=== PATIENT | female | born 1995 | race Two or more races ===

== ENCOUNTER 2018-02-12 05:55 | Inpatient (IN) | payer MEDICAID ==
--- NOTE | 2018-02-12 07:56 | PCM.LDHP ---
L&D History of Present Illness - General Date of Service: 02/12/18 Admit Problem/Dx: Admission Diagnosis/Problem Admission Diagnosis/Problem Source of Information: Patient History Limitations: Reports: No Limitations - History of Present Illness Introduction:: 22 year old at 39w4d here for induction for TOLAC. PNC with myself without complications other than prior for NRFHT. Had been scheduled for rcs/btl prior to transfer of care but decided wanted MANDO as she cannot have a btl. - Related Data Allergies/Adverse Reactions: Allergies Allergy/AdvReac Type Severity Reaction Status Date / Time No Known Allergies Allergy Verified 02/07/18 07:39 H&P Review of Systems - Review of Systems: Review Of Systems: See Below General: Reports: No Symptoms HEENT: Reports: No Symptoms Pulmonary: Reports: No Symptoms Cardiovascular: Reports: No Symptoms Gastrointestinal: Reports: No Symptoms Genitourinary: Reports: No Symptoms Musculoskeletal: Reports: No Symptoms Skin: Reports: No Symptoms Psychiatric: Reports: No Symptoms Neurological: Reports: No Symptoms Hematologic/Lymphatic: Reports: No Symptoms Immunologic: Reports: No Symptoms L&D Exam - Exam Exam: See Below - OB Specific Contraction Intensity: Mild to Moderate Movement: Active Heart Tones: Present Heart Rate (FHR) Variability: Moderate (6-25 bmp) Presentation: Vertex - Wade Score Wade Score Cervix Position: Midposition Wade Score Consistency: Soft Wade Score Effacement: 51-70% Wade Score Dilation: 1-2 cm Wade Score Infant's Station: -2 Wade Score Total: 7 - Exam General: Alert, Oriented HEENT: PERRLA, Conjunctiva Clear, EACs Clear, EOMI, Hearing Intact, Mucosa Moist & [place], Nares Patent, Normal Nasal Septum, Posterior Pharynx Clear, TMs Clear Neck: Supple, Trachea Midline Lungs: Clear to Auscultation, Normal Respiratory Effort Cardiovascular: Regular Rate, Regular Rhythm GI/Abdominal Exam: Normal Bowel Sounds, Soft, Non-Tender, No Organomegaly, No Distention, No Abnormal Bruit, No Mass, Pelvis Stable Rectal Exam: Normal Exam, Normal Rectal Tone Genitourinary: Normal external exam, Normal bimanual exam, Normal speculum exam Back Exam: Normal Inspection, Full Range of Motion Extremities: Normal Inspection, Normal Range of Motion, Non-Tender, No Pedal Edema, Normal Capillary Refill Skin: Warm, Dry, Intact Neurological: Cranial Nerves Intact, Reflexes Equal Bilateral Psychiatric: Alert, Normal Affect, Normal Mood Problem List Initiated/Reviewed/Updated: Yes Orders Last 24hrs: TOLAC - induction. Understands RBA. AROM clear fluid. Pitocin. Anticipate
[2018-02-12] MEDS ORDERED: Sodium Chloride 0.9% 10 ML Syringe FLUSH PRN (08:24)
[2018-02-12] MEDS ORDERED: Ondansetron 4 MG/2 ML SDV IVPUSH PRN ×2 (08:24→09:39)
[2018-02-12] MEDS ORDERED: Nalbuphine 20 MG/ML 1 ML Syringe IVPUSH PRN (08:24)
[2018-02-12] MEDS ORDERED: Oxytocin/Lactated Ringers 10 UNIT/1,000 ML BAG IV SCH ×2 (08:30→08:45)
[2018-02-12] MEDS ORDERED: Ampicillin 2 GM in Sodium Chloride 0.9% 100 ML IV ONE (08:30)
[2018-02-12] MEDS: Lactated Ringers 1,000 ML IV SCH ×4 (09:00→18:22)
[2018-02-12] MEDS ORDERED: fentaNYL 100 MCG/2 ML SDV EPIDUR PRN (09:39)
[2018-02-12] MEDS ORDERED: ePHEDrine 50 MG/ML SDV IVPUSH PRN (09:39)
[2018-02-12] MEDS ORDERED: diphenhydrAMINE 50 MG/ML SDV IVPUSH PRN (09:39)
--- NOTE | 2018-02-12 09:51 | PCM.PREANE ---
Preanesthetic Assessment - Procedure Proposed Procedure: NIKO - Anesthesia/Transfusion/Family Hx Anesthesia History: Prior Anesthesia Without Reaction Family History of Anesthesia Reaction: No Transfusion History: No Prior Transfusion(s) Intubation History: Unknown - Review of Systems General: No Symptoms Pulmonary: No Symptoms Cardiovascular: No Symptoms Gastrointestinal: No Symptoms Neurological: No Symptoms Other: Reports: None - Physical Assessment NPO Status Date: 02/12/18 NPO Status Time: 08:00 Pulse: 82 O2 Sat by Pulse Oximetry: 98 Respiratory Rate: 18 Blood Pressure: 106/45 Temperature: 36.5 C Height: 1.63 m Weight: 96.615 kg ASA Class: 2 Mental Status: Alert & Oriented x3 Airway Class: Mallampati = 1 Dentition: Reports: Normal Dentition Thyro-Mental Finger Breadths: 3 Mouth Opening Finger Breadths: 3 ROM/Head Extension: Full Lungs: Clear to Auscultation, Normal Respiratory Effort Cardiovascular: Regular Rate, Regular Rhythm - Lab Values: Laboratory Last Values WBC 7.05 K/mm3 (3.98-10.04) 02/12/18 08:50 RBC 4.01 M/mm3 (3.98-5.22) 02/12/18 08:50 Hgb 9.1 gm/L (11.2-15.7) L 02/12/18 08:50 Hct 30.0 % (34.1-44.9) L 02/12/18 08:50 MCV 74.8 fl (79.4-94.8) L 02/12/18 08:50 MCH 22.7 pg (25.6-32.2) L 02/12/18 08:50 MCHC 30.3 g/dl (32.2-35.5) L 02/12/18 08:50 RDW Std Deviation 42.6 fL (36.4-46.3) 02/12/18 08:50 Plt Count 181 K/mm3 (182-369) L 02/12/18 08:50 MPV 10.9 fl (9.4-12.3) 02/12/18 08:50 Neut % (Auto) 75.9 % (34.0-71.1) H 02/12/18 08:50 Lymph % (Auto) 17.3 % (19.3-51.7) L 02/12/18 08:50 [place] % (Auto) 5.4 % (4.7-12.5) 02/12/18 08:50 Eos % (Auto) 0.7 (0.7-5.8) 02/12/18 08:50 Baso % (Auto) 0.1 % (0.1-1.2) 02/12/18 08:50 Neut # (Auto) 5.35 K/mm3 (1.56-6.13) 02/12/18 08:50 Lymph # (Auto) 1.22 K/mm3 (1.18-3.74) 02/12/18 08:50 [place] # (Auto) 0.38 K/mm3 (0.24-0.36) H 02/12/18 08:50 Eos # (Auto) 0.05 K/mm3 (0.04-0.36) 02/12/18 08:50 Baso # (Auto) 0.01 K/mm3 (0.01-0.08) 02/12/18 08:50 Manual Slide Review Abnormal smear 02/12/18 08:50 - Allergies Allergies/Adverse Reactions: Allergies Allergy/AdvReac Type Severity Reaction Status Date / Time No Known Allergies Allergy Verified 02/07/18 07:39 - Blood Blood Available: No Product(s) Available: None - Anesthesia Plan Pre-Op Medication Ordered: None - Acknowledgements Anesthesia Type Planned: Epidural Pt an Appropriate Candidate for the Planned Anesthesia: Yes Alternatives and Risks of Anesthesia Discussed w Pt/Guardian: Yes Pt/Guardian Understands and Agrees with Anesthesia Plan: Yes PreAnesthesia Questionnaire RN PLASTIC SURGERY History: Reports: Hematologic History: Reports: Anemia - SUBSTANCE USE Smoking Status *Q: Never Smoker Second Hand Smoke Exposure: No Recreational Drug Use History: No - HOME MEDS Home Medications: Home Meds Acetaminophen [Tylenol] 2 mg PO Q6HR PRN 02/12/18 [History] - CURRENT (IN HOUSE) MEDS Current Meds: Current Medications Diphenhydramine HCl (Benadryl) 25 mg IVPUSH Q6H PRN PRN Reason: Pruritis Ephedrine Sulfate (Ephedrine Sulfate) 5 mg IVPUSH ASDIRECTED PRN PRN Reason: Hypotension Fentanyl (Sublimaze) 100 mcg EPIDUR Q3H PRN PRN Reason: Pain Fentanyl/Bupivacaine HCl (Fentanyl/Bupivacaine/Ns 2 Mcg-0.125% 100 Ml) 100 ml EPIDUR ASDIRECTED CARIN Ampicillin Sodium 1 gm/ Sodium (Chloride) 100 mls @ 200 mls/hr IV Q4H CARIN Lactated Ringer's (Ringers, Lactated) 1,000 mls @ 100 mls/hr IV ASDIRECTED CARIN Last Admin: 02/12/18 09:00 Dose: 100 mls/hr Oxytocin/Lactated Ringer's (Pitocin In Lr 10 Units/1,000 Ml) 10 unit in 1,000 mls @ 500 mls/hr IV .CONTINUOUS CARIN Oxytocin/Lactated Ringer's (Pitocin In Lr 10 Units/1,000 Ml) 10 unit in 1,000 mls @ 12 mls/hr IV TITRATE CARIN; Protocol Lidocaine HCl (Xylocaine 1%) 50 ml INJECT ONETIME ONE Stop: 02/12/18 12:01 Nalbuphine HCl (Nubain) 10 mg IVPUSH Q2H PRN PRN Reason: pain Ondansetron HCl (Zofran) 4 mg IVPUSH Q4H PRN PRN Reason: Nausea/Vomiting Ondansetron HCl (Zofran) 4 mg IVPUSH ONETIME PRN PRN Reason: Nausea/Vomiting Sodium Chloride (Saline Flush) 10 ml FLUSH ASDIRECTED PRN PRN Reason: Keep Vein Open Discontinued Medications Ampicillin Sodium 2 gm/ Sodium (Chloride) 100 mls @ 200 mls/hr IV ONETIME ONE Stop: 02/12/18 08:59 Last Admin: 02/12/18 09:13 Dose: 200 mls/hr
[2018-02-12] MEDS ORDERED: Lidocaine 1% 50 ML MDV INJECT ONE (12:00)
[2018-02-12] MEDS: Ampicillin 1 GM in Sodium Chloride 0.9% 100 ML IV SCH ×3 (13:03→21:14)
[2018-02-12] MEDS: Bupivacaine/fentaNYL/NS 100 ML Bag EPIDUR SCH ×2 (14:12→20:44)
[2018-02-12] MEDS ORDERED: Bupivacaine 0.25% 10 ML SDV ONE (22:00)
--- NOTE | 2018-02-13 00:09 | PCM.PNLD ---
Labor Progress Note - VS & Meds Vital Signs: Last Vital Signs Temp 36.5 C 02/12/18 09:51 Pulse 82 02/12/18 09:51 Resp 18 02/12/18 09:51 BP 106/45 L 02/12/18 09:51 Pulse Ox 98 02/12/18 09:51 Active Medications: Current Medications Diphenhydramine HCl (Benadryl) 25 mg IVPUSH Q6H PRN PRN Reason: Pruritis Ephedrine Sulfate (Ephedrine Sulfate) 5 mg IVPUSH ASDIRECTED PRN PRN Reason: Hypotension Fentanyl (Sublimaze) 100 mcg EPIDUR Q3H PRN PRN Reason: Pain Last Admin: 02/12/18 14:12 Dose: 100 mcg Fentanyl/Bupivacaine HCl (Fentanyl/Bupivacaine/Ns 2 Mcg-0.125% 100 Ml) 100 ml EPIDUR ASDIRECTED CARIN Last Admin: 02/12/18 20:44 Dose: 100 ml Ampicillin Sodium 1 gm/ Sodium (Chloride) 100 mls @ 200 mls/hr IV Q4H CARIN Last Admin: 02/12/18 21:14 Dose: 200 mls/hr Lactated Ringer's (Ringers, Lactated) 1,000 mls @ 100 mls/hr IV ASDIRECTED CARIN Last Admin: 02/12/18 18:22 Dose: 100 mls/hr Oxytocin/Lactated Ringer's (Pitocin In Lr 10 Units/1,000 Ml) 10 unit in 1,000 mls @ 500 mls/hr IV .CONTINUOUS CARIN Oxytocin/Lactated Ringer's (Pitocin In Lr 10 Units/1,000 Ml) 10 unit in 1,000 mls @ 12 mls/hr IV TITRATE CARIN; Protocol Last Titration: 02/12/18 19:30 Dose: 8 munits/min, 48 mls/hr Nalbuphine HCl (Nubain) 10 mg IVPUSH Q2H PRN PRN Reason: pain Ondansetron HCl (Zofran) 4 mg IVPUSH Q4H PRN PRN Reason: Nausea/Vomiting Ondansetron HCl (Zofran) 4 mg IVPUSH ONETIME PRN PRN Reason: Nausea/Vomiting Sodium Chloride (Saline Flush) 10 ml FLUSH ASDIRECTED PRN PRN Reason: Keep Vein Open Discontinued Medications Ampicillin Sodium 2 gm/ Sodium (Chloride) 100 mls @ 200 mls/hr IV ONETIME ONE Stop: 02/12/18 08:59 Last Admin: 02/12/18 09:13 Dose: 200 mls/hr Lidocaine HCl (Xylocaine 1%) 50 ml INJECT ONETIME ONE Stop: 02/12/18 12:01 - Uterine Contractions Contraction Intensity: Mild to Moderate - Monitoring Heart Rate (FHR) Variability: Moderate (6-25 bmp) Strip Review: Category I - Vaginal Exam Dilation (cm): 3 Effacement (Percent): 60 Station: -2 Cervical Position: Midposition - Labor Progress (Free Text) Labor Progress: Progressing well. AROM clear fluid (no prior leaking with attempted AROM)
--- NOTE | 2018-02-13 00:10 | PCM.PNLD ---
Labor Progress Note - VS & Meds Vital Signs: Last Vital Signs Temp 36.5 C 02/12/18 09:51 Pulse 82 02/12/18 09:51 Resp 18 02/12/18 09:51 BP 106/45 L 02/12/18 09:51 Pulse Ox 98 02/12/18 09:51 Active Medications: Current Medications Diphenhydramine HCl (Benadryl) 25 mg IVPUSH Q6H PRN PRN Reason: Pruritis Ephedrine Sulfate (Ephedrine Sulfate) 5 mg IVPUSH ASDIRECTED PRN PRN Reason: Hypotension Fentanyl (Sublimaze) 100 mcg EPIDUR Q3H PRN PRN Reason: Pain Last Admin: 02/12/18 14:12 Dose: 100 mcg Fentanyl/Bupivacaine HCl (Fentanyl/Bupivacaine/Ns 2 Mcg-0.125% 100 Ml) 100 ml EPIDUR ASDIRECTED CARIN Last Admin: 02/12/18 20:44 Dose: 100 ml Ampicillin Sodium 1 gm/ Sodium (Chloride) 100 mls @ 200 mls/hr IV Q4H CARIN Last Admin: 02/12/18 21:14 Dose: 200 mls/hr Lactated Ringer's (Ringers, Lactated) 1,000 mls @ 100 mls/hr IV ASDIRECTED CARIN Last Admin: 02/12/18 18:22 Dose: 100 mls/hr Oxytocin/Lactated Ringer's (Pitocin In Lr 10 Units/1,000 Ml) 10 unit in 1,000 mls @ 500 mls/hr IV .CONTINUOUS CARIN Oxytocin/Lactated Ringer's (Pitocin In Lr 10 Units/1,000 Ml) 10 unit in 1,000 mls @ 12 mls/hr IV TITRATE CARIN; Protocol Last Titration: 02/12/18 19:30 Dose: 8 munits/min, 48 mls/hr Nalbuphine HCl (Nubain) 10 mg IVPUSH Q2H PRN PRN Reason: pain Ondansetron HCl (Zofran) 4 mg IVPUSH Q4H PRN PRN Reason: Nausea/Vomiting Ondansetron HCl (Zofran) 4 mg IVPUSH ONETIME PRN PRN Reason: Nausea/Vomiting Sodium Chloride (Saline Flush) 10 ml FLUSH ASDIRECTED PRN PRN Reason: Keep Vein Open Discontinued Medications Ampicillin Sodium 2 gm/ Sodium (Chloride) 100 mls @ 200 mls/hr IV ONETIME ONE Stop: 02/12/18 08:59 Last Admin: 02/12/18 09:13 Dose: 200 mls/hr Lidocaine HCl (Xylocaine 1%) 50 ml INJECT ONETIME ONE Stop: 02/12/18 12:01 - Uterine Contractions Contraction Intensity: Mild to Moderate Uterine Resting Tone: Soft - Monitoring Heart Rate (FHR) Variability: Moderate (6-25 bmp) Strip Review: Category I - Vaginal Exam Dilation (cm): 6 Effacement (Percent): 90 Station: -2 Cervical Position: Midposition - Labor Progress (Free Text) Labor Progress: Progressing well. Continue low dose pitocin Anticipate
--- NOTE | 2018-02-13 00:14 | PCM.DEL ---
L & D Note - General Info Date of Service: 02/13/18 - Delivery Note Labor: Augmented by ARM, Induced by Oxytocin Delivery Outcome: Livebirth Infant Delivery Mode: Spontaneous Presentation: Left Occiput Anterior (FILIBERTO) Nuchal Cord: None Anesthesia Type: Epidural Episiotomy Type: None Laceration: 1st Degree Suture type: Vicryl Suture size: 3-0 Placenta: Intact, Spontaneous Cord: 3 Vessels Estimated Blood Loss: 600 Resuscitation Needed: No [place]: Bulb Syringe Delivery Comments (Free Text/Narrative):: . 3340g No complications at delivery. Induction Criteria - Wade Score Wade Score Dilation: 1-2 cm Wade Score Effacement: 40-50% Wade Score 's Station: -2 Wade Score Consistency: Medium Wade Score Cervix Position: Midposition Wade Score Total: 5 Wade Score Presenting Part: Reports: Cephalic - Induction Gestational Age >/= 39 wks: Yes Estimated Pelvis: Reports: Adequate Reassuring Monitoring Strip: Yes Absence of Tachy Systole: Yes - Augmentation Estimated Pelvis: Reports: Adequate Weight Estimated:: Reports: AGA Estimated Weight if LGA: 4000 kg Reassuring Monitoring Strip: Yes Absence of Tachy Systole: Yes - General Info Date of Service: 02/13/18 Functional Status: Reports: Pain Controlled - Review of Systems General: Reports: No Symptoms HEENT: Reports: No Symptoms Pulmonary: Reports: No Symptoms Cardiovascular: Reports: No Symptoms Gastrointestinal: Reports: No Symptoms Genitourinary: Reports: No Symptoms Musculoskeletal: Reports: No Symptoms Skin: Reports: No Symptoms Neurological: Reports: No Symptoms Psychiatric: Reports: No Symptoms - Patient Data Vitals - Most Recent: Last Vital Signs Temp 36.5 C 02/12/18 09:51 Pulse 82 02/12/18 09:51 Resp 18 02/12/18 09:51 BP 106/45 L 02/12/18 09:51 Pulse Ox 98 02/12/18 09:51 Weight - Most Recent: 96.615 kg I&O - Last 24 Hours: Intake & Output 02/12/18 02/12/18 02/13/18 14:59 22:59 06:59 Intake Total 480 Balance 480 Lab Results Last 24 Hours: Laboratory Results - last 24 hr 02/12/18 02/12/18 02/12/18 Range/Units 08:50 08:50 08:50 WBC 7.05 (3.98-10.04) K/mm3 RBC 4.01 (3.98-5.22) M/mm3 Hgb 9.1 L (11.2-15.7) gm/L Hct 30.0 L (34.1-44.9) % MCV 74.8 L (79.4-94.8) fl MCH 22.7 L (25.6-32.2) pg MCHC 30.3 L (32.2-35.5) g/dl RDW Std Deviation 42.6 (36.4-46.3) fL Plt Count 181 L (182-369) K/mm3 MPV 10.9 (9.4-12.3) fl Neut % (Auto) 75.9 H (34.0-71.1) % Lymph % (Auto) 17.3 L (19.3-51.7) % [place] % (Auto) 5.4 (4.7-12.5) % Eos % (Auto) 0.7 (0.7-5.8) Baso % (Auto) 0.1 (0.1-1.2) % Neut # (Auto) 5.35 (1.56-6.13) K/mm3 Lymph # (Auto) 1.22 (1.18-3.74) K/mm3 [place] # (Auto) 0.38 H (0.24-0.36) K/mm3 Eos # (Auto) 0.05 (0.04-0.36) K/mm3 Baso # (Auto) 0.01 (0.01-0.08) K/mm3 Manual Slide Review Abnormal smear RPR Non-reactive (NONREACTIVE) Blood Type O POSITIVE Gel Antibody Screen Negative Med Orders - Current: Current Medications Diphenhydramine HCl (Benadryl) 25 mg IVPUSH Q6H PRN PRN Reason: Pruritis Ephedrine Sulfate (Ephedrine Sulfate) 5 mg IVPUSH ASDIRECTED PRN PRN Reason: Hypotension Fentanyl (Sublimaze) 100 mcg EPIDUR Q3H PRN PRN Reason: Pain Last Admin: 02/12/18 14:12 Dose: 100 mcg Fentanyl/Bupivacaine HCl (Fentanyl/Bupivacaine/Ns 2 Mcg-0.125% 100 Ml) 100 ml EPIDUR ASDIRECTED CARIN Last Admin: 02/12/18 20:44 Dose: 100 ml Ampicillin Sodium 1 gm/ Sodium (Chloride) 100 mls @ 200 mls/hr IV Q4H CARIN Last Admin: 02/12/18 21:14 Dose: 200 mls/hr Lactated Ringer's (Ringers, Lactated) 1,000 mls @ 100 mls/hr IV ASDIRECTED CARIN Last Admin: 02/12/18 18:22 Dose: 100 mls/hr Oxytocin/Lactated Ringer's (Pitocin In Lr 10 Units/1,000 Ml) 10 unit in 1,000 mls @ 500 mls/hr IV .CONTINUOUS CARIN Oxytocin/Lactated Ringer's (Pitocin In Lr 10 Units/1,000 Ml) 10 unit in 1,000 mls @ 12 mls/hr IV TITRATE CARIN; Protocol Last Titration: 02/12/18 19:30 Dose: 8 munits/min, 48 mls/hr Nalbuphine HCl (Nubain) 10 mg IVPUSH Q2H PRN PRN Reason: pain Ondansetron HCl (Zofran) 4 mg IVPUSH Q4H PRN PRN Reason: Nausea/Vomiting Ondansetron HCl (Zofran) 4 mg IVPUSH ONETIME PRN PRN Reason: Nausea/Vomiting Sodium Chloride (Saline Flush) 10 ml FLUSH ASDIRECTED PRN PRN Reason: Keep Vein Open Discontinued Medications Ampicillin Sodium 2 gm/ Sodium (Chloride) 100 mls @ 200 mls/hr IV ONETIME ONE Stop: 02/12/18 08:59 Last Admin: 02/12/18 09:13 Dose: 200 mls/hr Lidocaine HCl (Xylocaine 1%) 50 ml INJECT ONETIME ONE Stop: 02/12/18 12:01 - Problem List Review Problem List Initiated/Reviewed/Updated: Yes - My Orders Last 24 Hours: My Active Orders 02/12/18 08:24 Activity as Tolerated [RC] PFP Communication Order [RC] ASDIRECTED Heart Tones [RC] ASDIRECTED Non Stress Test [RC] PER UNIT ROUTINE Notify Provider [RC] PFP Notify Provider [RC] PRN Peripheral IV Care [RC] . DIRECTED Vital Signs [RC] PER UNIT ROUTINE Nalbuphine [Nubain] 10 mg IVPUSH Q2H PRN Ondansetron [Zofran] 4 mg IVPUSH Q4H PRN Sodium Chloride 0.9% [Saline Flush] 10 ml FLUSH ASDIRECTED PRN Electronic Heart Tones Ext w TOCO [WOMSER] Routine Electronic Heart Tones Internal [WOMSER] Per Unit Routine Peripheral IV Insertion Adult [OM.PC] Routine Resuscitation Status Routine 02/12/18 08:30 Lactated Ringers [Ringers, Lactated] 1,000 ml IV ASDIRECTED Oxytocin/Lactated Ringers [Pitocin in LR 10 Units/1,000 ML] 10 unit in 1,000 ml IV .CONTINUOUS 02/12/18 08:45 Oxytocin/Lactated Ringers [Pitocin in LR 10 Units/1,000 ML] 10 unit in 1,000 ml IV TITRATE 02/12/18 13:00 Ampicillin 1 gm Sodium Chloride 0.9% [Normal Saline] 100 ml IV Q4H 02/12/18 13:47 Admission Status [Patient Status] [ADT] Routine 02/12/18 Lunch Regular Diet [DIET]
[2018-02-13] MEDS ORDERED: Lanolin 100% Cream 7 GM Tube TOP PRN (00:55)
[2018-02-13] MEDS ORDERED: Docusate Sodium 100 MG Cap PO PRN (00:55)
[2018-02-13] MEDS ORDERED: Witch Hazel Medicated Pads 100/Jar TOP PRN (00:55)
[2018-02-13] MEDS ORDERED: Hydrocortisone Acetate 25 MG Supp RECTAL PRN (00:55)
[2018-02-13] MEDS ORDERED: Benzocaine/Menthol 20%-0.5% Spray 56 GM Canister TOP PRN (00:55)
[2018-02-13] MEDS: Ibuprofen 600 MG Tab PO PRN ×3 (01:40→14:20)
--- NOTE | 2018-02-13 08:08 | PCM48HPAN ---
Post Anesthesia Note - EVALUATION WITHIN 48HRS OF ANESTHETIC Vital Signs in Normal Range: Yes Patient Participated in Evaluation: Yes Respiratory Function Stable: Yes Airway Patent: Yes Cardiovascular Function Stable: Yes Hydration Status Stable: Yes Pain Control Satisfactory: Yes Nausea and Vomiting Control Satisfactory: Yes Mental Status Recovered: Yes Pulse Rate: 118 Resp Rate: 14 Temperature: 97.0 F Blood Pressure: 108/73
[2018-02-13] MEDS ORDERED: Acetaminophen 325 MG Tab PO PRN (12:14)
== END 2018-02-14 12:35 | disposition home or self-care (01) | DRG 775 ==
LOC: UNDOADMIN 05:55 → JD.OB 05:55 → OBSVTOIN 23:49 → JD.OB 23:50
PROVIDERS: ADMIT Obstetrics & Gynecology; ATTEND Obstetrics & Gynecology
PROC: 00HU33Z Insertion of Infusion Device into Spinal Canal, Percutaneous Approach (ICD-10-PCS; 2018-02-12)
PROC: 3E0R3BZ Introduction of Anesthetic Agent into Spinal Canal, Percutaneous Approach (ICD-10-PCS; 2018-02-12)
PROC: 0HQ9XZZ Repair Perineum Skin, External Approach (ICD-10-PCS; principal; 2018-02-13)
PROC: 10907ZC Drainage of Amniotic Fluid, Therapeutic from Products of Conception, Via Natural or Artificial Opening (ICD-10-PCS; principal; 2018-02-13)
PROC: 10E0XZZ Delivery of Products of Conception, External Approach (ICD-10-PCS; principal; 2018-02-13)
PROC: 3E033VJ Introduction of Other Hormone into Peripheral Vein, Percutaneous Approach (ICD-10-PCS; principal; 2018-02-13)
DX: O34.219 Maternal care for unspecified type scar from previous cesarean delivery (principal); N85.8 Other specified noninflammatory disorders of uterus; Z3A.39 39 weeks gestation of pregnancy; Z37.0 Single live birth; O70.0 First degree perineal laceration during delivery
CPT/HCPCS: 36415; 51702; 59025; 59300; 59409; 85025; 86592; 86850; 86900; 86901; A9270-GY; J0290; J2590; J3010; J3490; J7030; J7120